=== PATIENT | female | born 1970 | race Caucasian/White ===

== ENCOUNTER 2021-10-21 17:39 | Emergency (ER) | payer MEDICARE ==
[~2021-10-21 17:39] MED LIST: MYCOSTATIN POWD15 GM TOP; Magic Mouth Wash; PYRIDIUM100 MG PO; Voltaren Gel 1% TOP; ZOFRAN4 MG PO
[2021-10-21 20:32] LABS: BUN/CREATININE RATIO 12 (0-10)
[2021-10-21 21:25] LABS: RED BLOOD COUNT 4.83 M/UL (4.00-5.10); WHITE BLOOD COUNT 10.7 K/UL (4.5-11.0)
== END 2021-10-22 02:21 | disposition left against medical advice (07) ==
LOC: ER1 17:39
PROVIDERS: Emergency Medicine
DX: R13.10 Dysphagia, unspecified (principal); F17.200 Nicotine dependence, unspecified, uncomplicated; Z20.822 Contact with and (suspected) exposure to COVID-19
CPT/HCPCS: 70450; 70491; 71045; 80053; 80307; 81001; 82550; 82553; 83605; 83690; 83735; 83880; 84100; 84439; 84443; 84484; 85025; 85610; 85652; 85730; 86140; 87081; 87086; 87880; 93005; 99283; Q9967; U0002